=== PATIENT | male | born 2000 | race Caucasian/White ===

== ENCOUNTER 2022-02-20 14:42 | Emergency (ER) | payer OTHER, SELFPAY ==
[2022-02-20 14:51] VITALS: BP 133/80; PULSE 73; RESP 18; TEMP 36.6; O2SAT 98; BMI 28.1
--- NOTE | 2022-02-20 14:58 | CRLHL7_ITS ---
For Patients: As a result of the Century Cures Act, medical imaging exams and procedure reports are released immediately into your electronic medical record. You may view this report before your referring provider. If you have questions, please contact your health care provider. HISTORY: Trauma. TECHNIQUE: Noncontrast CT facial bones. COMPARISON: No prior. FINDINGS: There is an acute right inferior orbital wall fracture with approximately 2 mm of inferior displacement. This is noted on coronal image #51 of series 4 for example. The right medial orbital wall is intact. There is a small amount of orbital emphysema. There is no retrobulbar hematoma. Prominent right periorbital preseptal soft tissue swelling is present. There is no rectus muscle entrapment. Acute hemorrhage is present throughout the right maxillary sinus. Partial opacification of the right nasal passage. No acute nasal bone fracture. Advanced mild nasal septal deviation to the right. No acute nasal septal fracture. No acute frontal bone fracture. Zygomatic arches are intact. IMPRESSION: 1. On the right, there is an acute inferior orbital wall fracture with 2 mm displacement/depression. 2. Small amount of right orbital emphysema. No retrobulbar hematoma. 3. Right periorbital/preseptal soft tissue swelling and hemorrhage. 4. Hemorrhage throughout the right maxillary sinus. Dictated by Klaus Ennis MD @ 02/20/2022 3:36:24 PM Please note that all CT scans at this facility use dose modulation, iterative reconstruction, and/or weight-based dosing when appropriate to reduce radiation dose to as low as reasonably achievable. Dictated by: Klaus Ennis MD @ 02/20/2022 15:36:30 (Electronically Signed)
--- NOTE | 2022-02-20 14:59 | ED_ITS ---
HPI - General Adult General Date Seen: 02/20/22 Chief complaint: Head Injury/Pain Stated complaint: Hit in face by a baseball Time Seen by Provider: 02/20/22 14:46 Source: patient History of Present Illness HPI narrative: Patient is a 21-year-old male who was playing baseball, he was on the receiving end of a throw from the outfield which took a bad bounce and hit him in the right eye. This happened at 10:40 a.m. this morning. Initially he was not significantly concerned about it. He did have a bloody nose and some soreness around the eye but no significant bruising. Shortly before coming in at 2:30 a.m., he developed a large dark swollen area underneath the eye. He does not have any visual complaints or eye pain specifically. He does not have any double vision. He did not have any head trauma otherwise, no loss of cons ciousness. No headache or vomiting. No neck pain. Nose bleed has stopped. He does not have any other facial pain. His front teeth are a little sore but he does not feel that they are loose at all. No intraoral lacerations. Related Data Home Medications Medication Instructions Recorded Confirmed No Known Home Medications 02/20/22 02/20/22 Allergies Allergy/AdvReac Type Severity Reaction Status Date / Time No Known Drug Allergies Allergy Verified 02/20/22 14:51 Review of Systems Status of ROS: Reports: 6 or more systems reviewed and unremarkable except as noted in History and below Exam Narrative: Exam Narrative: Vital signs as noted below In general, an alert, nontoxic young man Head: Normocephalic. Eyes: Pupils are equal reactive. Extraocular movements are full without evidence of entrapment, no diplopia. No evidence of ocular trauma. On the right, there is a large hematoma underneath the right eye. Orbital bones are nontender without palpable step-off. ENT: Mucous membranes are moist. Throat is normal. Evidence of recent nose bleed, no active bleeding. No septal hematoma. No tenderness over the bridge of the nose, no deformity. No other facial bony tenderness. Dentition intact. No intraoral laceration. Neck: Supple without lymphadenopathy. Nontender to palpation. Heart: Regular rate and rhythm. No murmur or rub. Lungs: Clear bilaterally. No increased work of breathing, crackles or wheezes. Abdomen: Soft and nontender. No organomegaly. Extremities: Well perfused. No edema. No calf tenderness. Pulses intact. Neurologic: Patient is alert and oriented to person and place. Speech is fluent. Face is symmetric. Moves all extremities equally. Affect: Normal. Skin: Warm and dry. Well perfused. Const: Vital Signs, click to edit/add: Vital Signs - 24 hr 02/20/22 14:51 Temperature 97.9 F Pulse Rate [Right Pulse Oximeter] 73 Respiratory Rate 18 Blood Pressure [Le ft Upper Arm] 133/80 Pulse Oximetry 98 Oxygen Delivery Me thod Room Air Course Course Hospital Course: Following initial evaluation, I ordered a CT of the facial bones to rule out orbital bone fracture. By my review, CT shows a blowout type fracture of the orbital floor. There was hemorrhage into the maxillary sinus on the right. Facial bones otherwise appear intact. Clinically, there is no evidence of entrapment. Final radiology report is as follows:IMPRESSION: 1. On the right, there is an acute inferior orbital wall fracture with 2 mm displacement/depression. 2. Small amount of right orbital emphysema. No retrobulbar hematoma. 3. Right periorbital/preseptal soft tissue swelling and hemorrhage. 4. Hemorrhage throughout the right maxillary sinus. I have discussed his care with Dr. Gaspar. He will follow him up in clinic on Monday at 10:00 a.m.. Per his recommendation all start him on antibiotics. patient did have a low recurrent bleeding from the right nares, this bleeding was minimal, examination shows a small area of recent bleeding in the anterior nasal septum. I offered cauterization with silver nitrate verses observation, I do think this will respond well to pressure if it does rebleed. He opted to just see how it does. Continues to denies significant pain. Ibuprofen or Tylenol if needed. Vital Signs Vital signs: Initial Vital Signs Temperature 97.9 F 02/20/22 14:51 Temperature Source Temporal Artery Scan 02/20/22 14:51 Pulse Rate 73 02/20/22 14:51 Respiratory Rate 18 02/20/22 14:51 Blood Pressure 133/80 02/20/22 14:51 Blood Pressure Mean 97 02/20/22 14:51 Blood Pressure Position Sitting 02/20/22 14:51 Pulse Oximetry 98 02/20/22 14:51 Oxygen Delivery Method 02/20/22 14:51 Vital Signs Temperature 97.9 F 02/20/22 14:51 Pulse Rate 73 02/20/22 14:51 Respiratory Rate 18 02/20/22 14:51 Blood Pressure 133/80 02/20/22 14:51 Pulse Oximetry 98 02/20/22 14:51 Oxygen Delivery Method 02/20/22 14:51 Temperature 97.9 F 02/20/22 14:51 Pulse Rate 73 02/20/22 14:51 Respiratory Rate 18 02/20/22 14:51 Blood Pressure 133/80 02/20/22 14:51 Pulse Oximetry 98 02/20/22 14:51 Oxygen Delivery Method 02/20/22 14:51 Discharge Plan Discharge Clinical Impression: Fracture of orbital floor, blow-out, right, closed Patient Disposition: Home, Self-Care Condition: Stable Instructions: Facial Fracture (ED) Additional Instructions: ENT follow-up on Monday. Follow-up with Dr. Gaspar in here in [facility], at 10:00 a.m. on Monday. Antibiotics as prescribed. Ibuprofen or Tylenol as needed. Ice liberally for swelling. Bruising and swelling in your face will improve with time but it may take a couple of weeks for that to completely go away. Prescriptions: No Action No Known Home Medications Stand Alone Forms: [employer] Info Instructions
== END 2022-02-20 17:22 | disposition home or self-care (01) ==
LOC: ED 16:32
PROVIDERS: Emergency Provider Emergency Medicine
DX: S02.31XA Fracture of orbital floor, right side, initial encounter for closed fracture (principal); Y93.64 Activity, baseball; Y92.320 Baseball field as the place of occurrence of the external cause; Y99.8 Other external cause status
CPT/HCPCS: 70486; 99284